=== PATIENT | female | born 1965 | race Two or more races ===

== ENCOUNTER 2024-06-20 15:38 | Emergency (ER) | payer MEDICAID, OTHER ==
[~2024-06-20] VITALS: Ht 154.9 cm; Wt 63.0 kg
[2024-06-20 18:55] VITALS: BP 159/79; PULSE 75; RESP 16; TEMP 97.7; O2SAT 98
[2024-06-20] MEDS ORDERED: METH4PAK PO (18:57)
--- NOTE | 2024-06-20 18:57 | ED.PDOC ---
Back pain HPI HPI Comments This is a 59-year-old female presents to the ED chief complaint acute on chronic right elbow pain. States history of right elbow pain she notes was given a shot directly into the elbow for the pain proximally 2 months ago in [place] she notes it lasted 2 months now the pain has returned over the past 2 days. Related to repetitive movement lifting and taking care for mom at home. Denies any known injury. Denies numbness weakness fevers or chills. Chief Complaint: Body Pain Time Seen by MD: 18:17 Reviewed Notes: Nurses Notes, Medications, Allergies Allergies: Coded Allergies: NO KNOWN ALLERGIES (Unverified , 06/20/24) Home Meds Active Scripts Methylprednisolone (Medrol Dosepak) 4 Mg Yfn, 4 MG PO UD for 6 Days, #21 TAB UAD Prov:MIGUEL A TRIANA AAYUSH 06/20/24 Information Source: Patient Mode of Arrival: Ambulatory Past Medical History PAST MEDICAL HISTORY: Denies Surgical History: Denies all surgeries MARKETING PROPOSAL COORDINATOR History: No Pertinent MARKETING PROPOSAL COORDINATOR History Family History Family History: Reviewed,noncontributory to illness Social History Smoker: Non-Smoker Alcohol: Denies ETOH Use Drugs: Denies Drug Use Constitutional: denies: chills, diaphoresis, fatigue, fever, malaise, sweats, weakness, others EENTM: denies: blurred vision, double vision, ear bleeding, ear discharge, ear drainage, ear pain, ear ringing, eye pain, eye redness, hearing loss, mouth pain, mouth swelling, nasal discharge, nose bleeding, nose congestion, nose pain, photophobia, tearing, throat pain, throat swelling, voice changes, others Respiratory: denies: cough, hemoptysis, orthopnea, SOB at rest, shortness of breath, SOB with excertion, stridor, wheezing, others Cardiovascular: denies: chest pain, dizzy spells, diaphoresis, Dyspnea on exertion, edema, irregular heart beat, left arm pain, lightheadedness, palpitations, PND, syncope, others Gastrointestinal: denies: abdomen distended, abdominal pain, blood streaked bowels, constipated, diarrhea, dysphagia, difficulty swallowing, hematemesis, melena, nausea, poor appetite, poor fluid intake, rectal bleeding, rectal pain, vomiting, others Genitourinary: denies: abnormal vagina bleeding, burning, dyspareunia, dysuria, flank pain, frequency, hematuria, incontinence, pain, , vagina discharge, urgency, others Neurological: denies: dizziness, fainting, headache, left sided numbness, left sided weakness, numbness, paresthesia, pre-existing deficit, right sided numbness, right sided weakness, seizure, speech problems, tingling, tremors, weakness, others Musculoskeletal: reports: others (Right elbow pain and swelling); denies: back pain, gout, joint pain, joint swelling, muscle pain, muscle stiffness, neck pain Integumetry: denies: bruises, change in color, change in hair/nails, dryness, laceration, lesions, lumps, rash, wounds, others Allergic/Immunocompromised: denies: Difficulty Healing, Frequent Infections, Hives, Itching, others Hematologic/Lymphatic: denies: anemia, blood clots, easy bleeding, easy bruising, swollen glands, others Endocrine: denies: excessive hunger, excessive sweating, excessive thirst, excessive urination, flushing, intolerance to cold, intolerance to heat, unexplained weight gain, unexplained weight loss, others Psychiatric: denies: anxiety, bipolar disorder, depression, hopeless, panic disorder, schizophrenia, sleepless, suicidal, others Physical Exam General Appearance: No Apparent Distress, Normal HEENT: Pharynx Normal Neck: Full Range of Motion, Non-Tender Respiratory: Lungs Clear, No Respiratory Distress, Normal Breath Sounds Cardiovascular: No Murmur, Normal Peripheral Pulses, Regular Rate/Rhythm Breast Exam: Deferred Gastrointestinal: Non Tender, Soft Genitalia: Deferred Pelvic: Deferred Rectal: Deferred Extremities: Normal capillary refill, Normal inspection, Normal range of motion, Non-tender, No pedal edema Musculoskeletal : Location: Right Extremity Location: Elbow (Tenderness on palpation right medial epicondyle noted edema without erythema. Strength sensory motion intact positive radial pulse.) Apperance: Normal Neurologic: Alert, investment trader II-XII nml as Tested, No Motor Deficits, Normal Affect, Normal Mood, No Sensory Deficits Cerebellar Function: Normal Reflexes: Normal Skin: Dry, Normal Color, Warm Lymphatic: No Adenopathy Was a procedure done? Was a procedure done?: No Back Pain Differential Dx Differential Diagnosis: Other, N/A Other Differential Diagnosis Bursitis X-Ray, Labs, Meds, VS Vital Signs Date Time Temp Pulse Resp B/P (MAP) Pulse Ox O2 Delivery O2 Flow Rate FiO2 06/20/24 18:55 75 16 98 Room Air 06/20/24 18:55 97.7 75 18 159/79 (105) 98 97.7 06/20/24 16:14 97.7 75 16 159/79 (105) 98 Current Medications Medications (Trade) Dose Ordered Sig/Naldo Route Start Time Stop Time Status Last Admin Ketorolac Tromethamine (Toradol Injection) 60 mg ONCE ONCE IM 06/20/24 19:00 06/20/24 19:01 DC 06/20/24 18:59 X-Ray, Labs, Meds, VS Comment Likely epicondylitis. Patient given Toradol 60 mg IM reports relief in pain requesting discharge at this time. Script Solu-Medrol pack x6 days. Advised to go by the drug store and tow picker an elbow Brenden wrap on elbow a sleeve. Follow up with her PCP in 2-3 days as necessary consider imaging if symptoms persist. ER return precautions given patient indicated understanding and agrees with discharge plan of care. Time of 1ST Reevaluation: 18:56 Reevaluation 1ST: Improved Patient Education/Counseling: Diagnosis, Treatment, Prognosis, Need For Follow Up Family Education/Counseling: No Family Present Departure 1 Departure Time of Disposition: 18:56 Impression: Primary Impression: Epicondylitis elbow, medial Qualified Codes: M77.01 - Medial epicondylitis, right elbow Disposition: 01 HOME / SELF CARE / HOMELESS Condition: Stable e-Prescriptions Methylprednisolone (Medrol Dosepak) 4 Mg Yfn 4 MG PO UD for 6 Days, #21 TAB UAD Prov: MIGUEL A TRIANA 06/20/24 Discharged With: Self Critical Care Note Critical Care Time?: No Stability Stability form required: MIGUEL A Munoz Jun 20, 2024 18:57
[2024-06-20] MEDS: KETOROLAC TROMETH 60MG/2ML VIAL IM ONE (18:59)
== END 2024-06-20 19:04 | disposition home or self-care (01) ==
LOC: ER 15:43
DX: M77.01 Medial epicondylitis, right elbow (principal); Z79.899 Other long term (current) drug therapy
CPT/HCPCS: 96372; 99283; J1885